=== PATIENT | female | born 1935 | race Caucasian/White ===

== ENCOUNTER → 2018-08-02 14:19 | Outpatient (CLI) | payer MEDICARE, OTHER, SELFPAY ==
[2018-08-02 14:59] LABS: Basophils % 0.2 % (0.1-2.0); Eosinophils % 1.3 % (0.1-12.0); Hematocrit 30.7 % (37.0-47.0); Hemoglobin 10.1 g/dL (12.2-16.2); Lymphocytes # 0.8 K/mm3 (0.7-4.5); Lymphocytes % 40.1 % (10-50); Mean Corpuscular Hemoglobin 33.4 pg (27.0-31.2); Mean Corpuscular Volume 101.4 fl (81-99); Mean Platelet Volume 9.1 fl (7.4-10.4); Monocytes # 0.1 K/mm3 (0.1-1.0); Monocytes % 4.8 % (1.7-9.3); Neutrophils # 1.1 K/mm3 (1.8-7.8); Neutrophils % 53.7 % (37.0-80.0); Red Blood Count 3.02 M/mm3 (4.20-5.40)
[2018-08-02 16:09] LABS: Platelet Count 35 K/mm3 (142-424)
[2018-08-02 18:15] LABS: Alanine Aminotransferase 17 U/L (12-78); Albumin Level 4.1 gm/dL (3.4-5.0); Albumin/Globulin Ratio 1.3 (1.1-1.8); Alkaline Phosphatase 93 U/L (46-116); Anion Gap 15.3 mEq/L (5-15); Aspartate Amino Transferase 12 U/L (15-37); Bilirubin,Total 0.3 mg/dL (0.2-1.0); Blood Urea Nitrogen 31 mg/dL (7-18); Calcium 10.2 mg/dL (8.5-10.1); Carbon Dioxide 27 mmol/L (21.0-32.0); Chloride 104 mmol/L (98-107); Creatinine,Serum 1.68 mg/dL (0.55-1.02); Estimated Glomerular Filt Rate 29 ml/min (>60); Ferritin 140 ng/mL (8-388); GFR (African American) 35 ML/MIN (>60); Globulin 3.2 gm/dl (1.3-3.2); Glucose 95 mg/dL (74-106); Potassium 4.3 mmoL/L (3.5-5.1); Sodium 142 mmol/L (136-145); Total Protein,Serum 7.3 gm/dL (6.4-8.2)
[2018-08-04 08:22] LABS: Iron 80 ug/dL (27-139); Iron Saturation 34 % (15-55); UIBC 158 ug/dL (118-369)
[2018-08-04 12:40] LABS: Folate 14.6 ng/mL (>3.0); Vitamin B12 420 pg/mL (232-1245)
[2018-08-04 14:22] LABS: Peripheral Smear Review Scanned Result
[2018-08-04 14:29] LABS: Free Kappa Lt Chains 25.5 mg/L (3.3-19.4); Free Lambda Lt Chains 19.8 mg/L (5.7-26.3)
[2018-08-06 13:43] LABS: Albumin 3.9 g/dL (2.9-4.4); Alpha-1-Globulin 0.3 g/dL (0.0-0.4); Alpha-2-Globulin 0.9 g/dL (0.4-1.0); Gamma Globulin 0.8 g/dL (0.4-1.8); Protein, Total 6.9 g/dL (6.0-8.5)
[2018-08-06 14:10] LABS: Immunoglobulin A, Qn 90 mg/dL (64-422); Immunoglobulin G, Qn 800 mg/dL (700-1600)
[2018-08-06 15:03] LABS: Immunoglobulin M, Qn 55 mg/dL (26-217)
== END ==
PROVIDERS: Visit Provider Internal Medicine Medical Oncology
DX: D64.9 Anemia, unspecified (principal)
CPT/HCPCS: 36415; 80053; 82607; 82728; 82746; 82784; 83540; 83550; 83883; 84155; 84165; 85025; 85060; 86334

== ENCOUNTER → 2018-09-25 11:19 | Outpatient (CLI) | payer MEDICARE, OTHER, SELFPAY ==
--- NOTE | 2018-09-25 11:21 | NVE_ITS ---
Venous Exam Indications: 729.81 Swelling of limb. IMPRESSIONS 1. There is no evidence of significant Reflux. 2. No evidence of deep or superficial vein thrombosis involving the right lower extremity History: Risk factors: Recent surgery: Lesion removed from rt calf 2 wks ago. Right lower extremity venous duplex evaluation. Doppler flow study including spectral analysis, color and callahan scale imaging. Location: Vascular laboratory. Patient status: Outpatient. Tables: Venous flow and imaging: + +-------+ + Location Overall Flow properties + +-------+ + Right common femoral Patent Normal phasicity; spontaneous; normal augmentation; compressible + +-------+ + Right saphenofemoral junction Patent Compressible + +-------+ + Right profunda femoral Patent Compressible + +-------+ + Right femoral Patent Normal phasicity; spontaneous; normal augmentation; compressible + +-------+ + Right greater saphenous Patent Normal phasicity; spontaneous; normal augmentation; compressible + +-------+ + Right popliteal Patent Normal phasicity; spontaneous; normal augmentation; compressible + +-------+ + Right posterior tibial Patent Compressible + +-------+ + Right peroneal Patent Compressible + +-------+ + Right gastrocnemius Patent Compressible + +-------+ + Right soleal Patent Compressible + +-------+ + (Report amended ) Electronically signed by: Stewart Arthur [id number]
== END ==
PROVIDERS: PCP Family Medicine; Visit Provider Surgery
DX: I82.409 Acute embolism and thrombosis of unspecified deep veins of unspecified lower extremity (principal); M79.89 Other specified soft tissue disorders
CPT/HCPCS: 93971